=== PATIENT | male | born 1970 | race Caucasian/White ===

== ENCOUNTER 2017-04-05 14:48 | Emergency (ER) | payer OTHER ==
[2017-07-02] MEDS ORDERED: NORVASC10 MG PO (16:04)
[2017-07-02] MEDS ORDERED: ASPIR 8181 MG PO (16:05)
[2017-07-02] MEDS ORDERED: LIPITOR TAB 1010 MG PO (16:06)
[2017-07-02] MEDS ORDERED: LISINOPRIL10 MG PO (16:06)
[2017-07-02] MEDS ORDERED: NICOTINE PATCH1 EAC5 TD (16:10)
== END 2017-04-05 17:26 | disposition home or self-care (01) ==
LOC: ER1 14:48
DX: S81.812A Laceration without foreign body, left lower leg, initial encounter (principal); I10 Essential (primary) hypertension; Z88.0 Allergy status to penicillin; Z79.899 Other long term (current) drug therapy; W29.0XXA Contact with powered kitchen appliance, initial encounter; Y92.009 Unspecified place in unspecified non-institutional (private) residence as the place of occurrence of the external cause
CPT/HCPCS: 12002; 73590; 96372; 99283; J2270; J2405

== ENCOUNTER 2021-12-27 21:27 | Emergency (ER) | payer SELFPAY ==
[~2021-12-27 21:27] MED LIST: AMLODIPINE BESYL5 MG PO; ASPIR 8181 MG PO; ASPIR-LOW81 MG PO; ATORVASTATIN CA20 MG PO; AZITHROMYCIN500 MG PO; BACTRIM DS TAB1 EACH PO; BROMFED DM COU473 ML PO; IBUPROFEN600 MG PO; IMDUR ER TAB 3030 MG PO; KEFLEX CAP 500500 MG PO; LIPITOR TAB 1010 MG PO; LISINOPRIL10 MG PO; LISINOPRIL5 MG PO; NICOTINE PATCH1 EAC5 TD; NORVASC10 MG PO; NORVASC5 MG PO; PERCOCET 5/325 T1 EA PO; PREDNISONE 10 M10 MG PO
[2021-12-27 23:10] LABS: HEMOGLOBIN 16.9 gm/dl (14.0-17.5); RED BLOOD COUNT 5.54 M/UL (4.20-5.50); WHITE BLOOD COUNT 10.5 K/UL (4.5-11.0)
[2021-12-27 23:43] LABS: BUN/CREATININE RATIO 20 (0-10)
== END 2021-12-28 00:52 | disposition home or self-care (01) ==
LOC: ER1 21:27
PROVIDERS: Physician Assistant Medical
DX: R51.9 Headache, unspecified (principal); I10 Essential (primary) hypertension; F17.210 Nicotine dependence, cigarettes, uncomplicated; Z88.0 Allergy status to penicillin
CPT/HCPCS: 70450; 71045; 80053; 82550; 82553; 83874; 84484; 85025; 85652; 86140; 93005; 99284